=== PATIENT | female | born 1945 | race Caucasian/White ===

== ENCOUNTER 2017-01-19 18:24 | Emergency (ER) | payer MEDICARE ==
--- NOTE | 2017-01-19 18:45 | ERPHSYRPT ---
- History of Present Illness Time Seen by Provider: 01/19/17 18:28 Source: patient Patient Subjective Stated Complaint: dropped iron skillet on foot 2 days ago Triage Nursing Assessment: states dropped iron skillet on lt foot 2 days ago. no previous injury. no bruising or swelling noted. pain with ambulation. pedal pulses present. Physician History: CC: left foot pain Hx: 71 y/o patient of Dr Anderson. She dropped heavy skillet on foot 2 days ago. Pain and now swelling. No other injury. She has pain medications. Allergies/Adverse Reactions: Sulfa (Sulfonamide Antibiotics) [Sulfa(Sulfonamide Antibiotics)] Allergy (Severe , Unverified 01/19/17 18:33) CANT BREATH oxytetracycline [From Terramycin] Allergy (Verified 01/19/17 18:33) SICK oxytetracycline HCl [From Terramycin] Allergy (Verified 01/19/17 18:33) SICK Penicillins Allergy (Verified 01/19/17 18:33) Hives Hx Tetanus, Diphtheria Vaccination/Date Given: Yes Hx Influenza Vaccination/Date Given: No Hx Pneumococcal Vaccination/Date Given: No Immunizations Up to Date: Yes - Review of Systems Constitutional: No Fever, No Chills Musculoskeletal: Injury (left foot), No Back Pain, No Neck Pain Skin: No Rash Neurological: No Headache, No Paralysis, No Parasthesia - Past Medical History Pertinent Past Medical History: Yes Neurological History: No Pertinent History ENT History: No Pertinent History Cardiac History: Arrhythmia, Hypertension Respiratory History: No Pertinent History Endocrine Medical History: No Pertinent History Musculoskeletal History: No Pertinent History GI Medical History: No Pertinent History History: No Pertinent History Psycho-Social History: No Pertinent History Female Reproductive Disorders: No Pertinent History Other Medical History: benign skin tags removed - Past Surgical History Past Surgical History: Yes Neuro Surgical History: No Pertinent History Cardiac: No Pertinent History, Pacemaker Respiratory: No Pertinent History Gastrointestinal: No Pertinent History Genitourinary: No Pertinent History Musculoskeletal: No Pertinent History Female Surgical History: Section, Tubal Ligation - Social History Smoking Status: Never smoker Exposure to second hand smoke: No Drug Use: none Patient Lives Alone: No - Nursing Vital Signs Nursing Vital Signs: Initial Vital Signs Temperature 97.5 F 01/19/17 18:28 Pulse Rate 84 01/19/17 18:28 Respiratory Rate 18 01/19/17 18:28 Blood Pressure 146/69 01/19/17 18:28 O2 Sat by Pulse Oximetry 96 01/19/17 18:28 Pain Scale Pain Intensity 8 - Physical Exam General Appearance: alert Eyes, Ears, Nose, Throat Exam: moist mucous membranes Neck Exam: normal inspection, non-tender, supple Cardiovascular/Respiratory Exam: regular rate/rhythm Neuro/Tendon Exam: normal sensation, normal motor functions Mental Status Exam: alert, oriented x 3, cooperative Skin Exam: warm, dry SpO2 Interpretation: normal SpO2: 96 Oxygen Delivery: Room Air Comments: tender left foot, 2,3 toes. Skin intact. No redness. Some swelling. No ankle edema. - Course Nursing assessment & vital signs reviewed: Yes - Radiology Exams left foot X-ray Interpretation: Reviewed by me, No Fracture Ordered Tests: Active Orders 24 hr Category Date Time Status Slava Bandage Application [facility] Care 01/19/17 18:47 Active Cold Application STAT Care 01/19/17 18:35 Active Splint STAT Care 01/19/17 18:47 Active FOOT (MINIMUM 3 VIEWS) Stat Exams 01/19/17 18:34 Taken - Progress Progress Note: 01/19/17 18:49 Prelim xray neg. Will use slava and darco shoe. Instr given. She has pain medication to use already. Counseled pt/family regarding: diagnosis, need for follow-up, rad results - Departure Time of Disposition: 18:50 Departure Disposition: Home Clinical Impression: Contusion of left foot Qualifiers: Encounter type: initial encounter Qualified Code(s): S90.32XA - Contusion of left foot, initial encounter Condition: Stable Critical Care Time: No Referrals: JOSE DAVID ANDERSON [Primary Care Provider] - Instructions: Contusion Additional Instructions: Ice, rest, elevate. Slava wrap and darco post op shoe. Ue your pain medication as already prescribed. Follow up with Dr Anderson if needed.
[2017-01-19 19:27] VITALS: BP 147/65; PULSE 70; O2SAT 98
--- NOTE | 2017-01-20 08:51 | XRAY ---
Indication: Pain following injury 2 days ago. Comparison: None 3 nonweightbearing views of the left foot demonstrates mild osteopenia, tiny posterior heel spur, and cuboid accessory ossicle. No other bony, articular, or soft tissue abnormalities.
== END 2017-01-19 19:37 | disposition home or self-care (01) ==
LOC: ED 18:24
DX: S90.32XA Contusion of left foot, initial encounter (principal); W20.8XXA Other cause of strike by thrown, projected or falling object, initial encounter; M79.672 Pain in left foot
CPT/HCPCS: 73630; 99282

== ENCOUNTER 2019-11-25 11:36 | Observation (INO) | payer MEDICARE ==
[2019-11-25] MEDS ORDERED: MORPHINE SULFATE 4 MG INJ IV ONE (11:40)
[2019-11-25] MEDS ORDERED: Zofran 4 MG/2 ML VIAL IV ONE (11:44)
[2019-11-25] MEDS ORDERED: Zofran 4 MG/2 ML VIAL ONE (11:53)
[2019-11-25] MEDS ORDERED: Sodium Chloride 0.9% 1000 ML 1,000 ML ONE (11:54)
[2019-11-25] MEDS ORDERED: MORPHINE SULFATE 4 MG INJ ONE (11:54)
[2019-11-25] MEDS: Sodium Chloride 0.9% 1000 ML 1,000 ML IV SCH (11:55)
[2019-11-25 11:57] LABS: Absolute Neutrophil Ct (ANC) 3.43 (1.4-6.9); BASOPHIL % 0.3 % (0.0-0.4); Basophil (Absolute #) 0.02 (0-0.4); Eosinophil % 2.1 % (0.00-5.0); Eosinophil (Absolute #) 0.13 (0-0.5); Hematocrit 35.2 % (35-47); Hemoglobin 11.3 gm/dl (12.0-16.0); Lymphocytes % 31.4 % (24.0-44.0); Mean Cell Volume 95.4 fl (78-100); Mean Corpuscular Hemoglobin 30.6 pg (26-32); Mean Corpuscular Hgb Concent. 32.1 g/dl (32-36); Mean Platelet Volume 10.7 fl (7.5-11.0); Monocyte (Absolute #) 0.57 (0.0-1.3); Monocytes % 9.4 % (0.0-12.0); Neutrophil % 56.8 % (36.0-66.0); Platelet Count 234 K/mm3 (150-450); Red Blood Count 3.69 M/mm3 (4.1-5.4); Red Cell Distribution Width 14.7 % (11.5-14.0); White Blood Count 6.1 K/mm3 (4.0-10.5)
[2019-11-25 12:12] LABS: INR 1.37 (0.8-3.0); PROTIME 15.6 SECONDS (9.95-12.35)
[2019-11-25 12:13] LABS: PTT 38.1 SECONDS (25.3-37.0)
[2019-11-25 12:19] LABS: ALBUMIN 4.3 g/dL (3.5-5.0); ALKALINE PHOSPHATASE 78 U/L (38-126); AMYLASE 93 U/L (30-110); BLOOD UREA NITROGEN 14 mg/dL (7-17); CHLORIDE 105 mmol/L (98-107); Calcium 9.5 mg/dL (8.4-10.2); Carbon Dioxide 23 mmol/L (22-30); Creatinine 1 0.66 mg/dL (0.52-1.04); Glucose 113 mg/dL (74-106); LIPASE 125 U/L (23-300); MAGNESIUM 1.8 mg/dL (1.6-2.3); NT PRO BNP 351 pg/mL (0-900); Potassium 3.6 mmol/L (3.5-5.1); SGOT/AST 21 U/L (14-36); SGPT/ALT 12 U/L (0-35); SODIUM 139 mmol/L (137-145); Total Protein 7.5 g/dL (6.3-8.2)
[2019-11-25 12:25] LABS: D-DIMER QUANTITATIVE < 215 ng/mL (215-500)
[2019-11-25 13:52] LABS: Appearance CLEAR (CLEAR); Bacteria RARE /HPF (NEGATIVE); Bilirubin NEGATIVE (NEGATIVE); Blood NEGATIVE Ery/ul (0-5); Glucose NEGATIVE (NEGATIVE); Ketones NEGATIVE (NEGATIVE); Leukocyte Esterase LARGE (NEGATIVE); Mucus SLIGHT /HPF (NEGATIVE); Nitrite NEGATIVE (NEGATIVE); Protein,Urine Dip NEGATIVE (Negative); Specific Gravity 1.013 (1.005-1.025); Urobilinogen NEGATIVE mg/dL (0-1)
[2019-11-25 14:01] LABS: Erythrocyte Sedimentation Rate 34 mm/hr (0-20)
--- NOTE | 2019-11-25 14:15 | ERPHSYRPT ---
- History of Present Illness Time Seen by Provider: 11/25/19 11:40 Historian: patient Exam Limitations: no limitations (and) Patient Subjective Stated Complaint: Pt states "For two days I have had this pain in my chest that goes past my pacemeker into my back. It is getting worse. " Triage Nursing Assessment: Pt presented alert and oriented X 3, skin pwd Pt ambulates with an upright steady gait, able to speak in clear full sentences pt in no apprent respiratory distress. Physician History: JIMI anterior chest pain in area of pacer. Pain X 2 days radiates around to back. Followed by Dr Ricks and Lee.Pain is in in in asharp rates severe,, No F,C S.Some soa and cough. No N and V. Only risk factors HTN, FH. Timing/Duration: day(s) (2) Activities at Onset: none Quality: sharpness, stabbing Location: substernal Chest Pain Radiation: back Severity of Pain-Max: mild Severity of Pain-Current: mild Modifying Factors: Improves With: nothing Associated Symptoms: shortness of breath, cough, No nausea, No vomiting, No palpitations, No abdominal pain, No diaphoresis, No chills, No fever Prior Chest Pain/Cardiac Workup: cardiac cath Nitro Today/Relief: no nitro taken today Aspirin Treatment Today: 81 mg x 1 Allergies/Adverse Reactions: Sulfa (Sulfonamide Antibiotics) [Sulfa(Sulfonamide Antibiotics)] Allergy (Severe , Verified 11/25/19 11:53) CANT BREATH oxytetracycline [From Terramycin] Allergy (Verified 01/19/17 18:33) SICK oxytetracycline HCl [From Terramycin] Allergy (Verified 01/19/17 18:33) SICK Penicillins Allergy (Verified 01/19/17 18:33) Hives Milk Containing Products Adverse Reaction (Severe, Verified 11/25/19 11:45) vomiting/diarrhea Home Medications: Aspirin 81 mg PO DAILY 01/19/17 [History] Carvedilol 6.25 mg [Coreg 6.25 MG] 1.5 tab PO BID 01/19/17 [History] Hydrochlorothiazide 12.5 mg PO DAILY 01/19/17 [History] Potassium Chloride 10 Meq Tab* [Klor Con 10 MEQ] 10 meq PO BID 07/18/17 [ History] Apixaban [Eliquis] 1 tab PO BID 11/25/19 [History] Clopidogrel Bisulfate [Clopidogrel] 1 tab PO DAILY 11/25/19 [History] Sacubitril/Valsartan [Entresto 49 mg-51 mg Tablet] 1 tab PO DAILY 11/25/19 [ History] Hx Tetanus, Diphtheria Vaccination/Date Given: Yes Hx Influenza Vaccination/Date Given: Yes Hx Pneumococcal Vaccination/Date Given: Yes Immunizations Up to Date: Yes Travel Risk - International Travel Have you traveled outside of the country in past 3 weeks: No Have you or anyone close to you been diagnosed with or: No Do your reside in a community with a known COVID-19 case?: Yes If Yes where:: [place] - Coronavirus Screening Has patient experienced Coronavirus symptoms: No - Review of Systems Constitutional: No Fever, No Chills Eyes: No Symptoms Ears, Nose, & Throat: No Symptoms Respiratory: Cough, Dyspnea Cardiac: Chest Pain, No Edema, No Syncope Abdominal/Gastrointestinal: No Abdominal Pain, No Nausea, No Vomiting, No Diarrhea Genitourinary Symptoms: No Dysuria Musculoskeletal: No Back Pain, No Neck Pain Skin: No Rash Neurological: No Dizziness, No Focal Weakness, No Sensory Changes Psychological: No Symptoms Endocrine: No Symptoms All Other Systems: Reviewed and Negative - Past Medical History Pertinent Past Medical History: Yes Neurological History: No Pertinent History ENT History: No Pertinent History Cardiac History: Arrhythmia, Hypertension Respiratory History: No Pertinent History Endocrine Medical History: No Pertinent History Musculoskeletal History: No Pertinent History GI Medical History: No Pertinent History History: No Pertinent History Psycho-Social History: No Pertinent History Female Reproductive Disorders: No Pertinent History Other Medical History: benign skin tags removed - Past Surgical History Past Surgical History: Yes Neuro Surgical History: No Pertinent History Cardiac: No Pertinent History, Cardiac Catheterization, Cardiac Stent, Pacemaker Respiratory: No Pertinent History Gastrointestinal: No Pertinent History Genitourinary: No Pertinent History Musculoskeletal: No Pertinent History Female Surgical History: Section, Tubal Ligation - Social History Smoking Status: Never smoker Exposure to second hand smoke: No Drug Use: none Patient Lives Alone: Yes - Nursing Vital Signs Nursing Vital Signs: Initial Vital Signs Temperature 99.1 F 11/25/19 11:36 Pulse Rate 80 11/25/19 11:36 Respiratory Rate 22 11/25/19 11:36 Blood Pressure 167/114 11/25/19 11:36 O2 Sat by Pulse Oximetry 97 11/25/19 11:36 Pain Scale Pain Intensity 0 - Physical Exam General Appearance: mild distress, alert Eye Exam: PERRL/EOMI, eyes nml inspection Ears, Nose, Throat Exam: normal ENT inspection, moist mucous membranes Neck Exam: normal inspection, non-tender, supple, full range of motion Respiratory Exam: normal breath sounds, lungs clear, No respiratory distress Cardiovascular Exam: regular rate/rhythm, normal heart sounds Gastrointestinal/Abdomen Exam: soft, No tenderness, No mass Back Exam: normal inspection, No CVA tenderness, No vertebral tenderness Extremity Exam: normal inspection, normal range of motion Neurologic Exam: alert, oriented x 3, cooperative, normal mood/affect, sensation nml, No motor deficits Skin Exam: normal color, warm, dry SpO2 Interpretation: normal SpO2: 98 O2 Delivery: Room Air - Radiology Exams Chest X-ray Interpretation: Interpreted by me, Other (?LLL efusion) - CT Exams Chest CT Interpretation: Tele-radiologist Report Ordered Tests: Active Orders 24 hr Category Date Time Status CHEST 1 VIEW (PORTABLE) Stat Exams 11/25/19 11:41 Taken CHEST WITH CONTRAST [CT] Stat Exams 11/25/19 12:48 Taken AMYLASE Stat Lab 11/25/19 12:00 Completed CBC W DIFF Stat Lab 11/25/19 11:40 Completed CMP Stat Lab 11/25/19 12:00 Completed CULTURE,URINE Stat Lab 11/25/19 13:34 Received D-DIMER QUANTITATIVE Stat Lab 11/25/19 12:00 Completed Erythrocyte Sedimentation Rate Stat Lab 11/25/19 11:40 Completed LIPASE Stat Lab 11/25/19 12:00 Completed Lactic Acid Stat Lab 11/25/19 11:40 Completed MAGNESIUM Stat Lab 11/25/19 12:00 Completed NT PRO BNP Stat Lab 11/25/19 12:00 Completed PROTIME WITH INR Stat Lab 11/25/19 12:00 Completed PTT Stat Lab 11/25/19 12:00 Completed TROPONIN Q3H Lab 11/25/19 12:00 Completed TROPONIN Q3H Lab 11/25/19 14:45 Ordered TROPONIN Q3H Lab 11/25/19 17:45 Ordered TROPONIN Q3H Lab 11/25/19 20:45 Ordered TROPONIN Q3H Lab 11/25/19 23:45 Ordered UA W/RFX UR CULTURE Stat Lab 11/25/19 13:34 Completed Medication Summary Generic Name Dose Route Start Last Admin Trade Name Natalia PRN Reason Stop Dose Admin Sodium Chloride 1,000 mls @ 100 mls/hr 11/25/19 11:45 11/25/19 11:55 Sodium Chloride 0.9% 1000 Ml IV 12/25/19 11:44 100 mls/hr .Q10H CHELO Administration Discontinued Medications Generic Name Dose Route Start Last Admin Trade Name Natalia PRN Reason Stop Dose Admin Morphine Sulfate 4 mg 11/25/19 11:40 11/25/19 11:55 Morphine Sulfate 4 Mg Inj IV 11/25/19 11:41 4 mg STAT ONE Administration Morphine Sulfate Confirm 11/25/19 11:54 Morphine Sulfate 4 Mg Inj Administered 11/25/19 11:55 Dose 4 mg .ROUTE .STK-MED ONE Ondansetron HCl 4 mg 11/25/19 11:44 11/25/19 11:55 Zofran 4 Mg/2 Ml Vial IV 11/25/19 11:45 4 mg STAT ONE Administration Ondansetron HCl Confirm 11/25/19 11:53 Zofran 4 Mg/2 Ml Vial Administered 11/25/19 11:54 Dose 4 mg .ROUTE .STK-MED ONE Lab/Rad Data: Laboratory Result Diagrams 11/25/19 11:40 11/25/19 12:00 Laboratory Results 11/25/19 11/25/19 11/25/19 Range/Units 13:34 12:00 12:00 WBC (4.0-10.5) K/mm3 RBC (4.1-5.4) M/mm3 Hgb (12.0-16.0) gm/dl Hct (35-47) % MCV (78-100) fl MCH (26-32) pg MCHC (32-36) g/dl RDW (11.5-14.0) % Plt Count (150-450) K/mm3 MPV (7.5-11.0) fl Gran % (36.0-66.0) % Eos # (Auto) (0-0.5) Absolute Lymphs (auto) (1.0-4.6) Absolute Monos (auto) (0.0-1.3) Lymphocytes % (24.0-44.0) % Monocytes % (0.0-12.0) % Eosinophils % (0.00-5.0) % Basophils % (0.0-0.4) % Absolute Granulocytes (1.4-6.9) Basophils # (0-0.4) ESR (0-20) mm/hr PT 15.6 H (9.95-12.35) SECONDS INR 1.37 (0.8-3.0) APTT 38.1 H (25.3-37.0) SECONDS D-Dimer < 215 L (215-500) ng/mL Sodium (137-145) mmol/L Potassium (3.5-5.1) mmol/L Chloride (98-107) mmol/L Carbon Dioxide (22-30) mmol/L Anion Gap (5-15) MEQ/L BUN (7-17) mg/dL Creatinine (0.52-1.04) mg/dL Estimated GFR ML/MIN Glucose (74-106) mg/dL Lactic Acid (0.4-2.0) Calcium (8.4-10.2) mg/dL Magnesium (1.6-2.3) mg/dL Total Bilirubin (0.2-1.3) mg/dL AST (14-36) U/L ALT (0-35) U/L Alkaline Phosphatase (38-126) U/L Troponin I < 0.012 (0.000-0.034) ng/mL NT-Pro-B Natriuret Pep (0-900) pg/mL Serum Total Protein (6.3-8.2) g/dL Albumin (3.5-5.0) g/dL Amylase (30-110) U/L Lipase (23-300) U/L Urine Color YELLOW (YELLOW) Urine Appearance CLEAR (CLEAR) Urine pH 5.0 (5-6) Ur Specific [place] 1.013 (1.005-1.025) Urine Protein NEGATIVE (Negative) Urine Ketones NEGATIVE (NEGATIVE) Urine Blood NEGATIVE (0-5) Rodger/ul Urine Nitrite NEGATIVE (NEGATIVE) Urine Bilirubin NEGATIVE (NEGATIVE) Urine Urobilinogen NEGATIVE (0-1) mg/dL Ur Leukocyte Esterase LARGE (NEGATIVE) Urine WBC (Auto) 16-25 (0-5) /HPF Urine RBC (Auto) 3-5 (0-2) /HPF U Hyaline Cast (Auto) 3-5 (0-2) /LPF U Epithel Cells (Auto) NONE (FEW) /HPF Urine Bacteria (Auto) RARE (NEGATIVE) /HPF Urine Mucus (Auto) SLIGHT (NEGATIVE) /HPF Urine Culture Reflexed YES (NO) Urine Glucose NEGATIVE (NEGATIVE) mg/dL 11/25/19 11/25/19 11/25/19 Range/Units 12:00 11:40 11:40 WBC 6.1 (4.0-10.5) K/mm3 RBC 3.69 L (4.1-5.4) M/mm3 Hgb 11.3 L (12.0-16.0) gm/dl Hct 35.2 (35-47) % MCV 95.4 (78-100) fl MCH 30.6 (26-32) pg MCHC 32.1 (32-36) g/dl RDW 14.7 H (11.5-14.0) % Plt Count 234 (150-450) K/mm3 MPV 10.7 (7.5-11.0) fl Gran % 56.8 (36.0-66.0) % Eos # (Auto) 0.13 (0-0.5) Absolute Lymphs (auto) 1.90 (1.0-4.6) Absolute Monos (auto) 0.57 (0.0-1.3) Lymphocytes % 31.4 (24.0-44.0) % Monocytes % 9.4 (0.0-12.0) % Eosinophils % 2.1 (0.00-5.0) % Basophils % 0.3 (0.0-0.4) % Absolute Granulocytes 3.43 (1.4-6.9) Basophils # 0.02 (0-0.4) ESR 34 H (0-20) mm/hr PT (9.95-12.35) SECONDS INR (0.8-3.0) APTT (25.3-37.0) SECONDS D-Dimer (215-500) ng/mL Sodium 139 (137-145) mmol/L Potassium 3.6 (3.5-5.1) mmol/L Chloride 105 (98-107) mmol/L Carbon Dioxide 23 (22-30) mmol/L Anion Gap 15.0 (5-15) MEQ/L BUN 14 (7-17) mg/dL Creatinine 0.66 (0.52-1.04) mg/dL Estimated GFR > 60.0 ML/MIN Glucose 113 H (74-106) mg/dL Lactic Acid 1.6 (0.4-2.0) Calcium 9.5 (8.4-10.2) mg/dL Magnesium 1.8 (1.6-2.3) mg/dL Total Bilirubin 0.40 (0.2-1.3) mg/dL AST 21 (14-36) U/L ALT 12 (0-35) U/L Alkaline Phosphatase 78 (38-126) U/L Troponin I (0.000-0.034) ng/mL NT-Pro-B Natriuret Pep 351 (0-900) pg/mL Serum Total Protein 7.5 (6.3-8.2) g/dL Albumin 4.3 (3.5-5.0) g/dL Amylase 93 (30-110) U/L Lipase 125 (23-300) U/L Urine Color (YELLOW) Urine Appearance (CLEAR) Urine pH (5-6) Ur Specific [place] (1.005-1.025) Urine Protein (Negative) Urine Ketones (NEGATIVE) Urine Blood (0-5) Rodger/ul Urine Nitrite (NEGATIVE) Urine Bilirubin (NEGATIVE) Urine Urobilinogen (0-1) mg/dL Ur Leukocyte Esterase (NEGATIVE) Urine WBC (Auto) (0-5) /HPF Urine RBC (Auto) (0-2) /HPF U Hyaline Cast (Auto) (0-2) /LPF U Epithel Cells (Auto) (FEW) /HPF Urine Bacteria (Auto) (NEGATIVE) /HPF Urine Mucus (Auto) (NEGATIVE) /HPF Urine Culture Reflexed (NO) Urine Glucose (NEGATIVE) mg/dL - Progress Progress: improved Air Movement: good Blood Culture(s) Obtained: No Antibiotics given: No Discussed with : Serenity - Departure Departure Disposition: Observation Clinical Impression: Chest pain Condition: Fair Critical Care Time: No Referrals: JEWEL FULTON MD [Primary Care Provider] -
[2019-11-25] MEDS ORDERED: Zofran 4 MG/2 ML VIAL IV PRN ×2 (14:48→15:31)
[2019-11-25] MEDS ORDERED: Senokot-S Tablet PO PRN ×2 (14:48→15:31)
[2019-11-25] MEDS ORDERED: MILK OF MAGNESIA 30 ML PO PRN ×2 (14:48→15:31)
[2019-11-25] MEDS ORDERED: MAALOX ES 30 ML UNIT DOSE PO PRN ×2 (14:48→15:31)
[2019-11-25] MEDS ORDERED: MORPHINE SULFATE 2 MG INJ IV PRN (15:31)
[2019-11-25] MEDS ORDERED: TYLENOL 325 MG PO PRN (15:31)
[2019-11-25] MEDS ORDERED: Sodium Chloride 0.9% 500 ML 500 ML IV SCH (15:31)
[2019-11-25] MEDS: TYLENOL 325 MG PO PRN (15:57)
--- NOTE | 2019-11-25 17:46 | PCM.BN ---
Brief Admission Note - Admission Note Brief Admisson Note: Patient admitted @ 11/25/19 15:25 to [facility]. Medication List reviewed and reconciled.
--- NOTE | 2019-11-25 19:12 | XRAY ---
Indication: Chest pain. Multiple contiguous axial images obtained through the chest using 80 cc Isovue 370 contrast. Comparison: None Lungs demonstrates mild bilateral dependent atelectasis with subsegmental atelectasis/scarring in the lingula and left lower lobes. No suspicious pulmonary mass, infiltrate, consolidation, or effusion. Heart is enlarged with left-sided dual-lead pacemaker. Aorta is mildly arteriosclerotic without aneurysm/dissection. No pathologic mediastinal/hilar lymphadenopathy. Bony thorax demonstrates mild osteopenia and mild degenerative changes throughout the spine. Limited upper abdomen demonstrates mild fatty liver. Impression: 1. Cardiomegaly with bilateral atelectasis/scarring. Negative for acute pneumonic process or CHF. 2. Incidental fatty liver. Comment: Preliminary interpretation was made by [facility]. No critical discrepancy.
--- NOTE | 2019-11-25 19:14 | XRAY ---
Indication: Chest pain. Comparison: September 17, 2012. Portable chest again demonstrates bibasilar subsegmental atelectasis/scarring, left greater than right. Heart remains enlarged with new left dual-lead pacemaker. Bony thorax intact again with mild osteopenia and degenerative changes. Impression: Continued nonacute chest with chronic features.
--- NOTE | 2019-11-25 19:46 | XRAY ---
Indication: Pain. Comparison: None AP/lateral thoracic spine demonstrates 12 rib-bearing thoracic vertebral segments with mild osteopenia, minimal dextroscoliosis centered at T6, and minimal multilevel degenerative spondylosis. No acute fracture, subluxation, or suspicious bone lesions. CT chest with contrast reported separately.
--- NOTE | 2019-11-25 19:50 | XRAY ---
Indication: Pain. Comparison: None 2 view left ribs demonstrates mild osteopenia, minimal dextroscoliosis centered at T6, and minimal multilevel degenerative spondylosis. No acute fracture or suspicious bone lesions. CT chest with contrast reported separately.
[2019-11-25] MEDS: ENTRESTO 49 MG-51 MG TABLET PO SCH (21:06)
[2019-11-25] MEDS: COREG 12.5 MG PO SCH (21:06)
[2019-11-25] MEDS: ELIQUIS 2.5 MG TABLET PO SCH (21:07)
[2019-11-26] MEDS: TYLENOL 325 MG PO PRN ×2 (00:14→07:53)
[2019-11-26] MEDS: Sodium Chloride 0.9% 1000 ML 1,000 ML IV SCH (01:20)
[2019-11-26 02:05] LABS: Risk Ratio 6.5
[2019-11-26 07:57] VITALS: O2SAT 94
[2019-11-26] MEDS: COREG 12.5 MG PO SCH (09:10)
[2019-11-26] MEDS: ENTRESTO 49 MG-51 MG TABLET PO SCH (09:11)
[2019-11-26] MEDS: ELIQUIS 2.5 MG TABLET PO SCH (09:11)
[2019-11-26] MEDS ORDERED: NON-FORMULARY ITEM (Hydrochlorothiazide [Hydrochlorothiazide] 12.5 MG) PO SCH (10:00)
[2019-11-26] MEDS ORDERED: ZOCOR 20MG PO SCH (10:00)
[2019-11-26] MEDS ORDERED: Protonix 40MG Tablet PO SCH (10:00)
[2019-11-26] MEDS ORDERED: hydroDIURIL 25 MG PO SCH (10:00)
[2019-11-26] MEDS ORDERED: Klor Con 10 MEQ PO SCH (10:00)
[2019-11-26] MEDS ORDERED: PLAVIX 75 MG Tablet PO SCH (10:00)
[2019-11-26] MEDS ORDERED: CLARITIN 10 MG PO SCH (10:00)
[2019-11-26 11:47] VITALS: BP 143/69; PULSE 68
--- NOTE | 2019-11-26 13:25 | PCM.SSS ---
History of Present Illness - Chief Complaint Chief Complaint: chest pain History of Present Illness: is a 74 year old female admitted through ER with c/o chest pain that radiates through to her back x 2 days,getting worse. CAD with stent but no MO 2017.Pacemaker for bradycardia 2012. School Custodian is Dr Ricks and pacemaker followed by Dr Howard. PCP is Dr Mccullough or DAVID Fletcher. Troponin negative in ER admit for serial troponins and OBS. She has not had chest pain or abd pain but continues to have mid upper back pain on the left. - Review of Systems Constitutional: No Symptoms Eyes: No Symptoms Ears, Nose, & Throat: No Symptoms, Other Respiratory: No Symptoms Cardiac: Chest Pain (see HPI) Abdominal/Gastrointestinal: No Symptoms Genitourinary Symptoms: No Symptoms Musculoskeletal: Back Pain Skin: No Symptoms Neurological: No Symptoms Psychological: No Symptoms, Other ( MAY 2019 Parkinsons and of close Family/Friends X9 total past year.) Hematologic/Lymphatic: No Symptoms Medications & Allergies Home Medications: Home Medication List Hydrochlorothiazide 12.5 mg PO DAILY 01/19/17 [History Confirmed 11/25/19] Potassium Chloride 10 Meq Tab* [Klor Con 10 MEQ] 10 meq PO DAILY 01/19/17 [ History Confirmed 11/25/19] Apixaban [Eliquis] 5 mg PO BID 11/25/19 [History Confirmed 11/25/19] Clopidogrel Bisulfate [Clopidogrel] 75 mg PO DAILY 11/25/19 [History Confirmed 11/25/19] Loratadine 10 mg PO DAILY 11/25/19 [History Confirmed 11/25/19] PANTOPRAZOLE 40 mg Tablet [Protonix 40MG Tablet] 40 mg PO QAM 11/25/19 [ History Confirmed 11/25/19] Pravastatin Sodium 20 mg PO QAM 11/25/19 [History Confirmed 11/25/19] Sacubitril/Valsartan [Entresto 49 mg-51 mg Tablet] 1 tab PO BID 11/25/19 [ History Confirmed 11/25/19] carvediloL [Carvedilol] 25 mg PO BID 11/25/19 [History Confirmed 11/25/19] Methocarbamol 500 mg [Robaxin 500 MG] 500 mg PO BIDPRN PRN #30 tablet NS 11/26/19 [Rx] Allergies/Adverse Reactions: Allergies Allergy/AdvReac Type Severity Reaction Status Date / Time Sulfa (Sulfonamide Allergy Severe Verified 11/25/19 11:53 Antibiotics) [Sulfa(Sulfonamide Antibiotics)] oxytetracycline Allergy SICK Verified 01/19/17 18:33 [From Terramycin] oxytetracycline HCl Allergy SICK Verified 01/19/17 18:33 [From Terramycin] Penicillins Allergy Hives Verified 01/19/17 18:33 Milk Containing Products AdvReac Severe vomiting/di Verified 11/25/19 11:45 arrhea - Past Medical History Past Medical History: Yes Neurological History: Stroke ENT History: Cataracts Cardiac History: Angina, Arrhythmia, Hypertension Respiratory History: No Pertinent History Endocrine Medical History: No Pertinent History Musculoskelatal History: Degenerative Disk Disease GI Medical History: No Pertinent History History: No Pertinent History Pyscho-Social History: No Pertinent History Reproductive Disorders: No Pertinent History Comment: benign skin tags removed - Female History Are you now?: No - Past Surgical History Past Surgical History: Yes (pacemaker 2013 Stent- 2018) Neuro Surgical History: No Pertinent History Cardiac History: Cardiac Stent, Pacemaker Respiratory Surgery: No Pertinent History GI Surgical History: No Pertinent History Genitourinary Surgical Hx: No Pertinent History Musculskeletal Surgical Hx: No Pertinent History Female Surgical History: Section - Social History Smoking Status: Never smoker Exposure to second hand smoke: No Alcohol: None Drug Use: none - Physical Exam Vital Signs: Vital Signs - 24 hr Temp Pulse Resp BP Pulse Ox 11/26/19 12:00 94 L 11/26/19 11:46 98.2 F 68 20 143/69 94 L 11/26/19 07:56 94 L 11/26/19 07:55 97.8 F 70 20 140/67 11/26/19 04:00 98.8 F 76 118/85 95 11/26/19 00:00 98.8 F 76 137/72 94 L 11/25/19 19:50 96 11/25/19 19:30 96 11/25/19 19:10 98.0 F 70 20 166/85 96 11/25/19 16:51 97 11/25/19 15:42 97.9 F 74 18 165/88 97 11/25/19 15:31 97 11/25/19 15:28 97.9 F 74 18 165/88 97 11/25/19 14:47 98 11/25/19 14:11 70 18 166/95 95 General Appearance: no apparent distress Neurologic Exam: alert, oriented x 3, cooperative, hardware installer II-XII nml as tested, normal mood/affect, nml cerebellar function, nml station & gait, sensation nml Eye Exam: PERRL/EOMI, eyes nml inspection Ears, Nose, Throat Exam: normal ENT inspection Neck Exam: normal inspection Respiratory Exam: normal breath sounds, lungs clear (no ronchi no rales no ronchi) Cardiovascular Exam: regular rate/rhythm Gastrointestinal/Abdomen Exam: soft, normal bowel sounds (nontender) Pelvic Exam: not done Rectal Exam: not done Back Exam: muscle spasm, point tenderness (left mid dorsal,increased thoracic kyphosis) Extremity Exam: normal inspection Skin Exam: normal color, warm, dry Results - Labs Lab/Micro Results: Lab Results-Last 24 Hours 11/25/19 11/25/19 11/25/19 Range/Units 11:40 13:34 14:53 ESR 34 H (0-20) mm/hr Troponin I < 0.012 (0.000-0.034) ng/mL Triglycerides (30-150) mg/dL Cholesterol (50-200) mg/dL LDL Cholesterol (30-100) mg/dL HDL Cholesterol (40-60) mg/dL Heart Disease Risk Ratio Urine Color YELLOW (YELLOW) Urine Appearance CLEAR (CLEAR) Urine pH 5.0 (5-6) Ur Specific [place] 1.013 (1.005-1.025) Urine Protein NEGATIVE (Negative) Urine Ketones NEGATIVE (NEGATIVE) Urine Blood NEGATIVE (0-5) Rodger/ul Urine Nitrite NEGATIVE (NEGATIVE) Urine Bilirubin NEGATIVE (NEGATIVE) Urine Urobilinogen NEGATIVE (0-1) mg/dL Ur Leukocyte Esterase LARGE (NEGATIVE) Urine WBC (Auto) 16-25 (0-5) /HPF Urine RBC (Auto) 3-5 (0-2) /HPF U Hyaline Cast (Auto) 3-5 (0-2) /LPF U Epithel Cells (Auto) NONE (FEW) /HPF Urine Bacteria (Auto) RARE (NEGATIVE) /HPF Urine Mucus (Auto) SLIGHT (NEGATIVE) /HPF Urine Culture Reflexed YES (NO) Urine Glucose NEGATIVE (NEGATIVE) mg/dL 05/23/20 05/23/20 05/24/20 Range/Units 17:45 20:35 00:30 ESR (0-20) mm/hr Troponin I < 0.012 < 0.012 < 0.012 (0.000-0.034) ng/mL Triglycerides (30-150) mg/dL Cholesterol (50-200) mg/dL LDL Cholesterol (30-100) mg/dL HDL Cholesterol (40-60) mg/dL Heart Disease Risk Ratio Urine Color (YELLOW) Urine Appearance (CLEAR) Urine pH (5-6) Ur Specific [place] (1.005-1.025) Urine Protein (Negative) Urine Ketones (NEGATIVE) Urine Blood (0-5) Rodger/ul Urine Nitrite (NEGATIVE) Urine Bilirubin (NEGATIVE) Urine Urobilinogen (0-1) mg/dL Ur Leukocyte Esterase (NEGATIVE) Urine WBC (Auto) (0-5) /HPF Urine RBC (Auto) (0-2) /HPF U Hyaline Cast (Auto) (0-2) /LPF U Epithel Cells (Auto) (FEW) /HPF Urine Bacteria (Auto) (NEGATIVE) /HPF Urine Mucus (Auto) (NEGATIVE) /HPF Urine Culture Reflexed (NO) Urine Glucose (NEGATIVE) mg/dL 11/26/19 Range/Units 02:00 ESR (0-20) mm/hr Troponin I (0.000-0.034) ng/mL Triglycerides 347 H (30-150) mg/dL Cholesterol 272 H (50-200) mg/dL LDL Cholesterol 120 H (30-100) mg/dL HDL Cholesterol 42 (40-60) mg/dL Heart Disease Risk Ratio 6.5 Urine Color (YELLOW) Urine Appearance (CLEAR) Urine pH (5-6) Ur Specific [place] (1.005-1.025) Urine Protein (Negative) Urine Ketones (NEGATIVE) Urine Blood (0-5) Rodger/ul Urine Nitrite (NEGATIVE) Urine Bilirubin (NEGATIVE) Urine Urobilinogen (0-1) mg/dL Ur Leukocyte Esterase (NEGATIVE) Urine WBC (Auto) (0-5) /HPF Urine RBC (Auto) (0-2) /HPF U Hyaline Cast (Auto) (0-2) /LPF U Epithel Cells (Auto) (FEW) /HPF Urine Bacteria (Auto) (NEGATIVE) /HPF Urine Mucus (Auto) (NEGATIVE) /HPF Urine Culture Reflexed (NO) Urine Glucose (NEGATIVE) mg/dL Microbiology 11/25/19 13:34 Urine Culture - Preliminary Clean Catch Midstream NO GROWTH TO DATE - Radiology Impressions Radiology Exams & Impressions: Radiology Procedures Category Date Time Status CHEST 1 VIEW (PORTABLE) Stat Exams 11/25/19 11:41 Completed CHEST WITH CONTRAST [CT] Stat Exams 11/25/19 12:48 Completed RIBS UNILATERAL Routine Exams 11/25/19 18:00 Completed THORACIC SPINE (AP,LAT,SWIMM) Routine Exams 11/25/19 18:00 Completed - Other Procedures and Tests Respiratory Therapy 11/27/19 05:00 EKG ROUTINE 11/28/19 05:00 EKG ROUTINE Assessment/Plan (1) Chest pain Current Visit: Yes Status: Acute Code(s): R07.9 - CHEST PAIN, UNSPECIFIED (2) Presence of stent in coronary artery in patient with coronary artery disease Current Visit: Yes Status: Chronic Assessment & Plan: 2018 per patient Code(s): I25.10 - ATHSCL HEART DISEASE OF [place] CORONARY ARTERY W/O ANG PCTRS; Z95.5 - PRESENCE OF CORONARY ANGIOPLASTY IMPLANT AND GRAFT (3) Spondylosis, thoracic Current Visit: Yes Status: Chronic Assessment & Plan: increased thoracic kyphosis with osteopenia and mm spasm tx symptomatically and test Vitamin D Code(s): M47.814 - SPONDYLOSIS W/O MYELOPATHY OR RADICULOPATHY, THORACIC REGION (4) Osteopenia determined by x-ray Current Visit: Yes Status: Chronic Code(s): M85.80 - OTH DISRD OF BONE DENSITY AND STRUCTURE, UNSPECIFIED SITE (5) Thoracic back pain Current Visit: Yes Status: Acute Qualifiers: Chronicity: acute Back pain laterality: left Qualified Code(s): M54.6 - Pain in thoracic spine Assessment & Plan: no compression fx no rib fx Code(s): M54.6 - PAIN IN THORACIC SPINE (6) Hypercholesteremia Current Visit: Yes Status: Acute Assessment & Plan: fasting lab lipid was not fasting ,patient states she had drank a sprite before AM lab draw-PCP or School Custodian to redraw as outpatient. Code(s): E78.00 - PURE HYPERCHOLESTEROLEMIA, UNSPECIFIED Hospital Summary - Hospital Course Hospital Course: Patient was admitted thru ER for chest pain radiating to back r/o [place], inital troponin and serial troponins were not elevated.Patient did not have any abdominal pain or GI symptoms,no fever,no cough or dyspnea. She had tenderness to palpation left mid dorsal ribs and spine with regional mm spasm and increased thoracic kyphosis.Xrays shwed no fx but did show osteopenia and deg spodylosis. She will follow up with Dr Ricsk and PCP Dr Mccullough or LOSS PREVENTION SUPERVISOR ,Justine. Rx for Robaxin given and Vitamin D ordered,no result at discharge. - Vitals & Intake/Output Vital Signs: Vital Signs Temperature 98.2 F 11/26/19 11:46 Pulse Rate 68 11/26/19 11:46 Respiratory Rate 20 11/26/19 11:46 Blood Pressure 143/69 11/26/19 11:46 O2 Sat by Pulse Oximetry 94 L 11/26/19 12:00 Intake & Output: Intake & Output 11/24/19 11/25/19 11/26/19 11/27/19 11:59 11:59 11:59 11:59 Intake Total 600 Balance 600 Weight 64.8 kg 66.8 kg - Lab Result Diagrams: 11/25/19 11:40 11/25/19 12:00 Lab Results-Last 24 Hrs: Lab Results-Last 24 Hours 11/25/19 11/25/19 11/25/19 Range/Units 11:40 13:34 14:53 ESR 34 H (0-20) mm/hr Troponin I < 0.012 (0.000-0.034) ng/mL Triglycerides (30-150) mg/dL Cholesterol (50-200) mg/dL LDL Cholesterol (30-100) mg/dL HDL Cholesterol (40-60) mg/dL Heart Disease Risk Ratio Urine Color YELLOW (YELLOW) Urine Appearance CLEAR (CLEAR) Urine pH 5.0 (5-6) Ur Specific [place] 1.013 (1.005-1.025) Urine Protein NEGATIVE (Negative) Urine Ketones NEGATIVE (NEGATIVE) Urine Blood NEGATIVE (0-5) Rodger/ul Urine Nitrite NEGATIVE (NEGATIVE) Urine Bilirubin NEGATIVE (NEGATIVE) Urine Urobilinogen NEGATIVE (0-1) mg/dL Ur Leukocyte Esterase LARGE (NEGATIVE) Urine WBC (Auto) 16-25 (0-5) /HPF Urine RBC (Auto) 3-5 (0-2) /HPF U Hyaline Cast (Auto) 3-5 (0-2) /LPF U Epithel Cells (Auto) NONE (FEW) /HPF Urine Bacteria (Auto) RARE (NEGATIVE) /HPF Urine Mucus (Auto) SLIGHT (NEGATIVE) /HPF Urine Culture Reflexed YES (NO) Urine Glucose NEGATIVE (NEGATIVE) mg/dL 11/25/19 11/25/19 11/26/19 Range/Units 17:45 20:35 00:30 ESR (0-20) mm/hr Troponin I < 0.012 < 0.012 < 0.012 (0.000-0.034) ng/mL Triglycerides (30-150) mg/dL Cholesterol (50-200) mg/dL LDL Cholesterol (30-100) mg/dL HDL Cholesterol (40-60) mg/dL Heart Disease Risk Ratio Urine Color (YELLOW) Urine Appearance (CLEAR) Urine pH (5-6) Ur Specific [place] (1.005-1.025) Urine Protein (Negative) Urine Ketones (NEGATIVE) Urine Blood (0-5) Rodger/ul Urine Nitrite (NEGATIVE) Urine Bilirubin (NEGATIVE) Urine Urobilinogen (0-1) mg/dL Ur Leukocyte Esterase (NEGATIVE) Urine WBC (Auto) (0-5) /HPF Urine RBC (Auto) (0-2) /HPF U Hyaline Cast (Auto) (0-2) /LPF U Epithel Cells (Auto) (FEW) /HPF Urine Bacteria (Auto) (NEGATIVE) /HPF Urine Mucus (Auto) (NEGATIVE) /HPF Urine Culture Reflexed (NO) Urine Glucose (NEGATIVE) mg/dL 11/26/19 Range/Units 02:00 ESR (0-20) mm/hr Troponin I (0.000-0.034) ng/mL Triglycerides 347 H (30-150) mg/dL Cholesterol 272 H (50-200) mg/dL LDL Cholesterol 120 H (30-100) mg/dL HDL Cholesterol 42 (40-60) mg/dL Heart Disease Risk Ratio 6.5 Urine Color (YELLOW) Urine Appearance (CLEAR) Urine pH (5-6) Ur Specific [place] (1.005-1.025) Urine Protein (Negative) Urine Ketones (NEGATIVE) Urine Blood (0-5) Rodger/ul Urine Nitrite (NEGATIVE) Urine Bilirubin (NEGATIVE) Urine Urobilinogen (0-1) mg/dL Ur Leukocyte Esterase (NEGATIVE) Urine WBC (Auto) (0-5) /HPF Urine RBC (Auto) (0-2) /HPF U Hyaline Cast (Auto) (0-2) /LPF U Epithel Cells (Auto) (FEW) /HPF Urine Bacteria (Auto) (NEGATIVE) /HPF Urine Mucus (Auto) (NEGATIVE) /HPF Urine Culture Reflexed (NO) Urine Glucose (NEGATIVE) mg/dL Micro Results-Entire Visit: Microbiology 11/25/19 13:34 Urine Culture - Preliminary Clean Catch Midstream NO GROWTH TO DATE - Radiology Exams Ordered Rad Exams-Entire Visit: Radiology Procedures Category Date Time Status CHEST 1 VIEW (PORTABLE) Stat Exams 11/25/19 11:41 Completed CHEST WITH CONTRAST [CT] Stat Exams 11/25/19 12:48 Completed RIBS UNILATERAL Routine Exams 11/25/19 18:00 Completed THORACIC SPINE (AP,LAT,SWIMM) Routine Exams 11/25/19 18:00 Completed - Procedures and Test Procedures and Tests throughout Hospitalization: Therapy Orders & Screens 11/25/19 19:41 EKG ROUTINE Comment: 11/26/19 05:00 EKG ROUTINE Comment: 11/27/19 05:00 EKG ROUTINE Comment: 11/28/19 05:00 EKG ROUTINE Comment: - Discharge Disposition: Home, Self-Care Condition: Good Prescriptions: New Methocarbamol 500 mg [Robaxin 500 MG] 500 mg PO BIDPRN PRN #30 tablet NS PRN Reason: Muscle Spasms Continue Potassium Chloride 10 Meq Tab* [Klor Con 10 MEQ] 10 meq PO DAILY Hydrochlorothiazide 12.5 mg PO DAILY Sacubitril/Valsartan [Entresto 49 mg-51 mg Tablet] 1 tab PO BID Clopidogrel Bisulfate [Clopidogrel] 75 mg PO DAILY Apixaban [Eliquis] 5 mg PO BID carvediloL [Carvedilol] 25 mg PO BID PANTOPRAZOLE 40 mg Tablet [Protonix 40MG Tablet] 40 mg PO QAM Loratadine 10 mg PO DAILY Pravastatin Sodium 20 mg PO QAM Additional Instructions: Vitamin D level was checked but not resulted at time of discharge. Please discuss with PCP.(osteopenia) Follow up with: EJWEL MCCULLOUGH MD [Primary Care Provider] - 1 Week ROMAN RICKS [ACTIVE STAFF] - 1 Week
== END 2019-11-26 14:30 | disposition home or self-care (01) ==
LOC: ED 11:36 → UNDOADMOB 15:25 → MED SURG 15:25 → UNDODISOB 11-26 14:30
PROVIDERS: ADMIT Family Medicine; ATTEND Family Medicine
DX: R07.9 Chest pain, unspecified (principal); I10 Essential (primary) hypertension; I25.10 Atherosclerotic heart disease of native coronary artery without angina pectoris; M47.814 Spondylosis without myelopathy or radiculopathy, thoracic region; M54.6 Pain in thoracic spine; E78.00 Pure hypercholesterolemia, unspecified; M85.80 Other specified disorders of bone density and structure, unspecified site; Z79.01 Long term (current) use of anticoagulants; Z86.73 Personal history of transient ischemic attack (TIA), and cerebral infarction without residual deficits; Z95.5 Presence of coronary angioplasty implant and graft; Z79.899 Other long term (current) drug therapy
CPT/HCPCS: 36000; 36415; 71045; 71100; 71260; 72072; 80053; 80061; 81001; 82150; 82306; 83605; 83690; 83721; 83735; 83880; 84484; 85025; 85379; 85610; 85652; 85730; 87086; 93005; 93268; 94760; 96374; 96375; 99285; G0378; J2270; J2405; A9270-GY

== ENCOUNTER 2021-10-01 10:10 | Day surgery (SDC) | payer MEDICARE ==
[2021-10-01] MEDS ORDERED: Depo-Medrol 40 MG/ML IM ONE (10:11)
[2021-10-01] MEDS ORDERED: BUPIVACAINE 0.5% VIAL IJ ONE (10:11)
[2021-10-01] MEDS ORDERED: Lactated Ringers 1,000 ML IV ONE (12:06)
[2021-10-01] MEDS ORDERED: DIPRIVAN 200 MG/20 ML IV ONE (12:13)
--- NOTE | 2021-10-01 12:55 | XRAY ---
Indication: Left knee injection injection. Intraoperative fluoroscopy provided for 7 seconds. Single digital spot image submitted for interpretation demonstrates needle tip projecting over the left femur intercondylar notch. Small amount of contrast injected for needle tip placement. Correlate with intraoperative findings/report.
--- NOTE | 2021-10-01 12:55 | XRAY ---
7 seconds fluoroscopy time in surgery for intra-articular injection of the left knee.
== END 2021-10-01 12:37 | disposition home or self-care (01) ==
LOC: SDC-PAIN 10:10
PROVIDERS: ATTEND Psychiatry & Neurology Pain Medicine
DX: M17.12 Unilateral primary osteoarthritis, left knee (principal); M70.52 Other bursitis of knee, left knee; Z79.899 Other long term (current) drug therapy
CPT/HCPCS: 20610; 73560; 77002; J1030; J2704; Q9966

== ENCOUNTER 2021-11-05 12:46 | Day surgery (SDC) | payer MEDICARE ==
[2021-11-05] MEDS ORDERED: Depo-Medrol 40 MG/ML IM ONE (12:47)
[2021-11-05] MEDS ORDERED: Sodium Chloride 0.9(Preservative Free) 10 ML IJ ONE (12:47)
[2021-11-05] MEDS ORDERED: Lactated Ringers 1,000 ML IV ONE (15:17)
[2021-11-05] MEDS ORDERED: DIPRIVAN 200 MG/20 ML IV ONE (15:51)
--- NOTE | 2021-11-05 16:51 | XRAY ---
Indication: Left L3-L5 transforaminal [place].. Intraoperative fluoroscopy provided for 20 seconds. 4 digital spot image submitted for interpretation demonstrates posterior needle tips projecting over the expected left L3 and L4 nerve roots. Small amount of contrast injected for needle tip placement. Correlate with intraoperative findings/report.
--- NOTE | 2021-11-05 16:52 | XRAY ---
20 seconds of fluoroscopy was used in surgery for a left L3-L5 transforaminal [place].
== END 2021-11-05 16:32 | disposition home or self-care (01) ==
LOC: SDC-PAIN 12:46
PROVIDERS: ATTEND Psychiatry & Neurology Pain Medicine
DX: M54.16 Radiculopathy, lumbar region (principal); I10 Essential (primary) hypertension; Z79.899 Other long term (current) drug therapy; Z79.01 Long term (current) use of anticoagulants
CPT/HCPCS: 64483; 64484; 72100; 77003; J1030; J2704; Q9966

== ENCOUNTER 2024-02-10 14:17 | Day surgery (SDC) | payer MEDICARE ==
[2024-02-10] MEDS ORDERED: BUPIVACAINE 0.5% VIAL IJ ONE (14:18)
[2024-02-10] MEDS ORDERED: LIDOCAINE HCL 1% 50 MG/5 ML VL PF IJ ONE (14:18)
[2024-02-10] MEDS ORDERED: Depo-Medrol 40 MG/ML IM ONE (14:18)
--- NOTE | 2024-02-10 16:47 | XRAY ---
Indication: Left knee injection. Intraoperative fluoroscopy provided for 11 seconds. Single digital spot image demonstrates needle tip projecting over left femur intercondylar notch. Small amount of contrast injected for needle tip placement. Correlate with intraoperative findings/report.
--- NOTE | 2024-02-10 17:11 | XRAY ---
11 seconds of fluoroscopy was used in surgery for a left intra-articular knee injection.
== END 2024-02-10 15:45 ==
LOC: SDC-PAIN 14:17
PROVIDERS: ATTEND Psychiatry & Neurology Pain Medicine
DX: M17.12 Unilateral primary osteoarthritis, left knee (principal)
CPT/HCPCS: 20610; 73560; 77002; J2001; Q9966

== ENCOUNTER 2024-07-26 13:29 | Day surgery (SDC) | payer MEDICARE, OTHER ==
[2024-07-26] MEDS ORDERED: Depo-Medrol 40 MG/ML IM ONE (13:30)
[2024-07-26] MEDS ORDERED: BUPIVACAINE 0.5% VIAL IJ ONE (13:30)
[2024-07-26] MEDS ORDERED: LIDOCAINE HCL 1% AMPUL 5 ML IJ ONE (13:30)
--- NOTE | 2024-07-26 16:31 | XRAY ---
Indication: Left knee injection. Intraoperative fluoroscopy provided for 6 seconds. Single digital spot image submitted for interpretation demonstrates needle tip projecting over left femur intercondylar notch. Small amount of contrast injected for needle tip. Correlate with intraoperative findings/report.
--- NOTE | 2024-07-26 16:37 | XRAY ---
6 seconds of fluoroscopy was used in surgery for a left intra-articular knee injection.
== END 2024-07-26 16:00 | disposition home or self-care (01) ==
LOC: SDC-PAIN 13:29
PROVIDERS: ATTEND Psychiatry & Neurology Pain Medicine
DX: M17.12 Unilateral primary osteoarthritis, left knee (principal)
CPT/HCPCS: 20610; 73560; 77002; Q9966